=== PATIENT | male | born 2000 | race Caucasian/White ===

== ENCOUNTER 2023-10-28 15:57 | Emergency (ER) | payer OTHER ==
[~2023-10-28] VITALS: Ht 170.2 cm; Wt 135.2 kg
[2023-10-28 16:31] VITALS: BP_SYST 146; PULSE 90; RESP 18; TEMP 97.8; O2SAT 96
[2023-10-28] MEDS ORDERED: NIZCR60 TP (18:50)
[2023-10-28] MEDS ORDERED: NEOM28.36 TP (18:50)
[2023-10-28] MEDS ORDERED: CEPH-548 PO (18:50)
[2023-10-28 18:58] VITALS: BP_SYST 146; PULSE 90; RESP 18; TEMP 97.8; O2SAT 96
== END 2023-10-28 18:59 | disposition home or self-care (01) ==
LOC: SED 15:57
DX: N48.1 Balanitis (principal); L08.89 Other specified local infections of the skin and subcutaneous tissue
CPT/HCPCS: 99283